=== PATIENT | female | born 1950 | race Hispanic/Latino ===

== ENCOUNTER 2017-08-02 12:32 | Emergency (ER) | payer OTHER ==
[~2017-08-02] VITALS: Ht 165.1 cm; Wt 84.5 kg
[~2017-08-02 12:32] MED LIST: AMLODIPINE BESYL5 MG PO; BENAZEPRIL HCL40 MG PO; BIOTIN1000 MICRO PO; HYDROCHLOROTHIA25 MG PO; KRILL OIL 5001 EACH PO; LISINOPRIL40 MG PO
[2017-08-02] MEDS ORDERED: TRAMADOL HCL50 MG PO (14:45)
[2017-08-02] MEDS ORDERED: METOPROLOL TART25 MG PO (14:46)
[2017-08-02] MEDS ORDERED: PERCOCET 5/31 TABLET PO (16:26)
[2017-08-02 16:54] VITALS: BP 180/80
== END 2017-08-02 16:57 | disposition home or self-care (01) ==
LOC: EME 12:32
DX: S70.02XA Contusion of left hip, initial encounter (principal); W00.0XXA Fall on same level due to ice and snow, initial encounter; M16.0 Bilateral primary osteoarthritis of hip; I10 Essential (primary) hypertension; Z88.0 Allergy status to penicillin
CPT/HCPCS: 73502; 99281; 99283

== ENCOUNTER → 2018-01-25 | Outpatient (CLI) | payer OTHER ==
[~2018-01-25] MED LIST changes: +METOPROLOL TART25 MG PO; +PERCOCET 5/31 TABLET PO; +TRAMADOL HCL50 MG PO
== END | disposition home or self-care (01) ==
DX: Z01.818 Encounter for other preprocedural examination (principal); M17.11 Unilateral primary osteoarthritis, right knee; R26.2 Difficulty in walking, not elsewhere classified; M25.561 Pain in right knee; M25.661 Stiffness of right knee, not elsewhere classified; M62.81 Muscle weakness (generalized); Z74.1 Need for assistance with personal care
CPT/HCPCS: 97161 GP; 97165 GO; 97530 GP; 97535 GO; G8978 GP; G8979 GP; G8980 GP; G8987 GO; G8988 GO; G8989 GO